=== PATIENT | male | born 1940 | race Two or more races ===

== ENCOUNTER 2017-11-25 16:11 | Emergency (ER) | payer OTHER ==
[~2017-11-25] VITALS: Ht 160 cm; Wt 73.5 kg
--- NOTE | 2017-11-25 16:20 | NUR ---
Note tamikoone in EDM - 11/25/17 at 1728 by SHANNAN HANNARA 40 FROM WORK: S/P SLIP AND FALL LEFT LEG PAIN WITH SHORTENING, 8MG MORPHINE GIVEN IN FIELD. NAD NOTED, VSS, RESP EVEN AND UNLABORED, PT PUT ON HOSPITAL GOWN AND MONITOR, WAITING FOR MD SOLORZANO.
--- NOTE | 2017-11-25 16:40 | NUR ---
BBRA 40 FROM WORK: S/P SLIP AND FALL LEFT LEG PAIN WITH SHORTENING, 8MG MORPHINE GIVEN IN FIELD. NAD NOTED, VSS, RESP EVEN AND UNLABORED, PT PUT ON HOSPITAL GOWN AND MONITOR, WAITING FOR MD SOLORZANO.
[2017-11-25] MEDS ORDERED: ONDANSETRON HCL/PF 4 MG/2 ML VIAL ONE (16:48)
[2017-11-25] MEDS ORDERED: MORPHINE SULFATE INJ 4 MG/ML DISP.SYRIN ONE ×2 (16:50→20:11)
--- NOTE | 2017-11-25 16:55 | NUR ---
CALLED [facility], PRESENTED PT, AWAITING CALL BACK FROM [facility]
[2017-11-25 17:00] LABS: BASOPHILS # (AUTO) 0.1 /CMM (0.0-0.2); BASOPHILS % (AUTO) 0.7 % (0.0-2.0); EOSINOPHILS # (AUTO) 0.2 /CMM (0.0-0.7); EOSINOPHILS % (AUTO) 2.7 % (0.0-6.0); HEMATOCRIT 40 % (39-51); HEMOGLOBIN 13.4 g/dL (13.5-17.5); LYMPHOCYTES # (AUTO) 2.4 /CMM (0.8-4.8); LYMPHOCYTES % (AUTO) 30.8 % (20.0-44.0); MEAN CORPUSCULAR HEMOGLOBIN 30 PG (26.0-33.0); MEAN CORPUSCULAR HGB CONC 34 g/dl (31.0-36.0); MEAN CORPUSCULAR VOLUME 88 fL (80-96); MONOCYTES # (AUTO) 0.8 /CMM (0.1-1.30); MONOCYTES % (AUTO) 10.2 % (2.0-12.0); NEUTROPHILS # (AUTO) 4.2 /CMM (1.8-8.9); NEUTROPHILS % (AUTO) 55.6 % (43.0-81.0); PLATELET COUNT (AUTO) 151 /CMM (150-450); RDW COEFFICIENT OF VARIATION 13.7 (11.5-15.0); RED BLOOD CELL COUNT(AUTO) 4.48 MIL/uL (4.5-6.0); WHITE BLOOD COUNT (AUTO) 7.6 K/uL (4.3-11.0)
[2017-11-25] MEDS ORDERED: ONDANSETRON HCL/PF 4 MG/2 ML VIAL IVP ONE (17:00)
[2017-11-25] MEDS ORDERED: MORPHINE SULFATE INJ 10 MG/ML DISP.SYRIN IV ONE (17:00)
[2017-11-25 17:15] LABS: CALCIUM, SERUM 8.6 mg/dL (8.5-10.1); CARBON DIOXIDE 28 mmol/L (21-32); CHLORIDE 107 mmol/L (98-107); GLUCOSE 105 mg/dL (74-106); POTASSIUM 3.4 mmol/L (3.5-5.1); SODIUM SERUM 147 mmol/L (136-145); UREA NITROGEN, BLOOD 24 mg/dL (7-18)
[2017-11-25 17:28] LABS: INR 0.96 (0.87-1.13)
--- NOTE | 2017-11-25 19:08 | NUR ---
RECEIVED CALL FROM [facility], PT ACCEPTED TO [facility] BY , NUMBER FOR REPORT IS [phone]. [facility] SHOULD ARRIVE IN 45 MIN.
[2017-11-25 19:21] VITALS: BP 154/96
--- NOTE | 2017-11-25 19:34 | NUR ---
will call again in 5 mins, to give report to artur
--- NOTE | 2017-11-25 19:46 | NUR ---
report given to artur
[2017-11-25] MEDS ORDERED: MORPHINE SULFATE INJ 2 MG/ML DISP.SYRIN IV ONE (20:30)
== END 2017-11-25 20:21 | disposition home or self-care (01) ==
LOC: ER 16:13
DX: S72.332A Displaced oblique fracture of shaft of left femur, initial encounter for closed fracture (principal); N40.0 Benign prostatic hyperplasia without lower urinary tract symptoms; W01.0XXA Fall on same level from slipping, tripping and stumbling without subsequent striking against object, initial encounter; Y93.89 Activity, other specified; Y92.89 Other specified places as the place of occurrence of the external cause; Y99.8 Other external cause status
CPT/HCPCS: 36415; 71045; 73552; 80048; 85025; 85730; 93005; 96374; 96375; 99285; A4606; J2270 ×2; J2405; Z7610